=== PATIENT | male | born 1945 | race Caucasian/White ===

== ENCOUNTER 2018-01-03 09:34 | Emergency (ER) | payer OTHER, BC ==
[~2018-01-03] VITALS: Ht 180.3 cm; Wt 95.3 kg
[2018-01-03 09:35] VITALS: BP_SYST 148
[2018-01-03 10:54] VITALS: BP_SYST 135
== END 2018-01-03 10:54 | disposition home or self-care (01) ==
LOC: SED 09:34
DX: T83.091A Other mechanical complication of indwelling urethral catheter, initial encounter (principal); I10 Essential (primary) hypertension; Z95.1 Presence of aortocoronary bypass graft
CPT/HCPCS: 51702; 99284; J7030

== ENCOUNTER 2019-07-12 10:23 | Outpatient (CLI) | payer OTHER, BC | END 2019-07-12 20:55 | disposition home or self-care (01) | LOC: SRD 10:23 | PROVIDERS: ATTEND Internal Medicine | DX: I70.202 Unspecified atherosclerosis of native arteries of extremities, left leg (principal); M47.817 Spondylosis without myelopathy or radiculopathy, lumbosacral region; M20.61 Acquired deformities of toe(s), unspecified, right foot; M77.31 Calcaneal spur, right foot; M81.0 Age-related osteoporosis without current pathological fracture; I70.0 Atherosclerosis of aorta; M16.11 Unilateral primary osteoarthritis, right hip | CPT/HCPCS: 72110; 73502 ==

== ENCOUNTER 2020-02-22 17:50 | Emergency (ER) | payer OTHER, BC ==
[~2020-02-22] VITALS: Ht 180.3 cm; Wt 99.8 kg
[2020-02-22 17:50] VITALS: BP_SYST 141
--- NOTE | 2020-02-22 17:50 | NUR ---
BROUGHT BACK TO BED IN [place] AND TRIAGED. REPORT GIVEN TO [facility]
--- NOTE | 2020-02-22 18:21 | NUR ---
Pt came to ER for buzzing in ear x2 weeks. He denies pain, resting in [place], awaiting MD, no distress at this time.
--- NOTE | 2020-02-22 18:26 | NUR ---
ER at bedside examining patient.
[2020-02-22 18:55] VITALS: BP_SYST 141
--- NOTE | 2020-02-22 18:55 | NUR ---
Patient given written and verbal discharge instructions and verbalizes understanding. ER MD discussed with patient the results and treatment provided. Patient in stable condition. ID arm band removed. Rx of Prednisone given. Patient educated on pain management and to follow up with PMD. Pain Scale 0/10. Opportunity for questions provided and answered. Medication side effect fact sheet provided.
== END 2020-02-22 18:55 | disposition home or self-care (01) ==
LOC: SED 17:50
DX: J02.9 Acute pharyngitis, unspecified (principal); H92.02 Otalgia, left ear; I10 Essential (primary) hypertension; Z86.73 Personal history of transient ischemic attack (TIA), and cerebral infarction without residual deficits
CPT/HCPCS: 99283